=== PATIENT | female | born 2000 | race Caucasian/White ===

== ENCOUNTER → 2020-02-04 | Outpatient (REF) | payer OTHER ==
[2020-02-04 14:18] LABS: HEMATOCRIT 38.8 % (36.0-47.0); HEMOGLOBIN 12.5 g/dl (12.0-15.5); MEAN CORPUSCULAR HGB CONC 32.2 g/dl (32.0-36.5); MEAN CORPUSCULAR VOLUME 83.8 fl (80.0-96.0); PLATELET COUNT, AUTOMATED 413 10^3/uL (150-450); RED BLOOD COUNT 4.63 10^6/uL (4.00-5.40); WHITE BLOOD COUNT 9.7 10^3/uL (4.0-10.0)
[2020-02-04 15:40] LABS: HEPATITIS C VIRUS ABY INDEX 0.1 INDEX (<0.8); HIV 1&2 SCREEN CENTAUR NEGATIVE (NEGATIVE)
== END ==
LOC: M PLALAB 11:07
PROVIDERS: ATTEND Advanced Practice Midwife
DX: Z34.01 Encounter for supervision of normal first pregnancy, first trimester (principal)

== ENCOUNTER → 2020-03-03 | Outpatient (REF) | payer OTHER | LOC: M PLALAB 11:18 | PROVIDERS: ATTEND Obstetrics & Gynecology | DX: Z34.01 Encounter for supervision of normal first pregnancy, first trimester (principal) ==

== ENCOUNTER → 2020-03-14 | Outpatient (CLI) | payer SELFPAY | LOC: M LABSMTC 09:06 | PROVIDERS: ATTEND Pediatrics | DX: Z20.828 Contact with and (suspected) exposure to other viral communicable diseases (principal) ==

== ENCOUNTER → 2020-04-15 | Outpatient (CLI) | payer OTHER ==
--- NOTE | 2020-04-15 09:24 | REP ---
INDICATION: ANATOMY COMPARISON: None. TECHNIQUE: Transabdominal obstetrical ultrasound with color Doppler evaluation. FINDINGS: Examination demonstrates a single live intrauterine in variable presentation. motion is identified by technologist. Placenta is noted posterior and grade 0 without evidence for placenta previa or abruption. Amniotic fluid volume is normal. Cervix measures 3.1 cm in length and appears closed.. Gestational age by LMP 18 weeks 1 day with VALENTIN 09/15/2020. Gestational age by current measurements 19 weeks 6 days with VALENTIN 09/03/2020. FHR equals 147 beats per minute. BPD: 4.6 cm 19 weeks 6 days HC: 17.0 cm 19 weeks 4 days AC: 14.6 cm 19 weeks 6 days FL: 3.2 cm 19 weeks 6 days HL: 3.0 cm 19 weeks 5 days HC/AC: 1.16 Estimated weight 317 grams (80thpercentile based on age by current measurements). Anatomical assessment demonstrates normal structures including cranium, choroid plexus, cavum, cerebellum/posterior fossa, facial features, lungs,diaphragm, stomach, cord insertion/three-vessel cord, kidneys/bladder, spine, and extremities. IMPRESSION: 1. Single live intrauterine in variable presentation demonstrating appropriate estimated weight. 2. Limited evaluation of the heart/ventricular outflow tracts due to position/motion. Remainder of the anatomical assessment is complete and normal. <Electronically signed by Thor Carroll > 04/15/20 [id number]
== END ==
LOC: M WHC 08:07
PROVIDERS: ATTEND Advanced Practice Midwife
DX: Z34.02 Encounter for supervision of normal first pregnancy, second trimester (principal); Z3A.19 19 weeks gestation of pregnancy
CPT/HCPCS: 76811; G0463

== ENCOUNTER → 2020-04-15 | Outpatient (CLI) | payer OTHER | LOC: M WHC 10:40 | PROVIDERS: ATTEND Obstetrics & Gynecology | DX: Z34.92 Encounter for supervision of normal pregnancy, unspecified, second trimester (principal); Z3A.18 18 weeks gestation of pregnancy; Z53.9 Procedure and treatment not carried out, unspecified reason ==

== ENCOUNTER → 2020-04-29 | Outpatient (CLI) | payer OTHER ==
--- NOTE | 2020-04-29 08:54 | REP ---
INDICATION: F/U ANATOMY COMPARISON: 04/15/2020 TECHNIQUE: Transabdominal obstetrical ultrasound with color Doppler evaluation. FINDINGS: Examination demonstrates a single live intrauterine in variable presentation. motion is identified by technologist. Placenta is noted posterior and grade 1 without evidence for placenta previa or abruption. Amniotic fluid volume is normal. Cervix measures 3.6 cm in length and appears closed.. Gestational age by LMP 20 weeks 1 day with VALENTIN 09/15/2020. Gestational age by current measurements 22 weeks 1 day with VALENTIN 09/01/2020. FHR equals 155 beats per minute. Estimated weight 458 grams (greater than 97thpercentile based on age by LMP). Anatomical assessment demonstrates normal structures including cranium, facial features, nose/lips, heart/ventricular outflow tracts, diaphragm, stomach, abdominal wall, kidneys/bladder, and three-vessel cord IMPRESSION: 1. Single live intrauterine in variable presentation. Estimated growth and weight is greater than expected and may warrant correlation. 2. In conjunction with prior examination anatomical assessment is complete and normal. <Electronically signed by Thor Carroll > 04/29/20 [id number]
== END ==
LOC: M WHC 07:52
PROVIDERS: ATTEND Obstetrics & Gynecology
DX: Z34.02 Encounter for supervision of normal first pregnancy, second trimester (principal); Z36.2 Encounter for other antenatal screening follow-up; Z3A.20 20 weeks gestation of pregnancy

== ENCOUNTER → 2020-06-12 | Outpatient (REF) | payer OTHER ==
[2020-06-12 13:45] LABS: HEMATOCRIT 31.1 % (36.0-47.0); HEMOGLOBIN 9.9 g/dl (12.0-15.5); MEAN CORPUSCULAR HEMOGLOBIN 27.7 pg (27.0-33.0); MEAN CORPUSCULAR HGB CONC 31.8 g/dl (32.0-36.5); MEAN CORPUSCULAR VOLUME 86.9 fl (80.0-96.0); PLATELET COUNT, AUTOMATED 359 10^3/uL (150-450); RED BLOOD COUNT 3.58 10^6/uL (4.00-5.40); WHITE BLOOD COUNT 15.3 10^3/uL (4.0-10.0)
== END ==
LOC: M PLALAB 10:40
PROVIDERS: ATTEND Advanced Practice Midwife
DX: Z34.02 Encounter for supervision of normal first pregnancy, second trimester (principal); Z3A.00 Weeks of gestation of pregnancy not specified
CPT/HCPCS: 36415; 82950; 85027; 86850; 86900; 86901; G0463